=== PATIENT | male | born 1930 | race Caucasian/White ===

== ENCOUNTER → 2017-12-23 10:36 | Outpatient (CLI) | payer MEDICARE, BC ==
[2014-07-14 14:02] VITALS: BMI 31.1
[~2017-12-23 10:36] MED LIST: BAYER CHEWABLE81 MG PO; COREG12.5 MG PO; COZAAR100 MG PO; GLIMEPIRIDE4 MG PO; GLUCOPHAGE850 MG; GLUCOSAMINE HC500 MG PO; HYDROCODON-ACE1 EAC7 PO; JANUVIA100 MG PO; LANOXIN250 MCG PO; LANTUS INSULIN10 ML SC; LASIX40 MG PO; PRAVACHOL40 MG PO; VESICARE5 MG PO
== END | disposition home or self-care (01) ==
LOC: D.US 12-22 10:30
DX: I65.23 Occlusion and stenosis of bilateral carotid arteries (principal)

== ENCOUNTER → 2018-03-09 13:58 | Outpatient (CLI) | payer MEDICARE, BC ==
[2014-07-14 14:02] VITALS: BMI 31.1
== END | disposition home or self-care (01) ==
LOC: D.CT 13:58
DX: I65.23 Occlusion and stenosis of bilateral carotid arteries (principal)

== ENCOUNTER → 2018-11-18 14:15 | Outpatient (CLI) | payer MEDICARE, BC ==
[2014-07-14 14:02] VITALS: BMI 31.1
== END | disposition home or self-care (01) ==
LOC: D.CT 11-12 13:30 → D.US 14:15 → D.CT 15:00 → D.US 15:00
PROVIDERS: ATTEND Internal Medicine Cardiovascular Disease
DX: I65.23 Occlusion and stenosis of bilateral carotid arteries (principal)